=== PATIENT | male | born 1960 | race Two or more races ===

== ENCOUNTER 2024-12-08 02:22 | Emergency (ER) | payer OTHER ==
[~2024-12-08] VITALS: Ht 180.3 cm; Wt 81.6 kg
[2024-12-08] MEDS ORDERED: METFORMIN HCL1000 M2 PO (02:29)
[2024-12-08] MEDS ORDERED: ENALAPRIL M1 MG/1 ML PO (02:30)
[2024-12-08] MEDS ORDERED: ATORVASTATIN CA10 MG PO (02:30)
[2024-12-08 04:16] LABS: BASO % 0.4 % (0.1-1.2); EOS # 0.14 (0.04-0.54); EOS % 1.7 % (0.7-7.0); LYMPH # 1.49 (1.18-3.74); LYMPH % 18.6 % (19.3-53.1); MEAN PLATELET VOLUME 9.50 fl (9.4-12.4); MONO # 0.75 (0.24-0.82); MONO % 9.3 % (4.7-12.5); NEUT # 5.60 (1.56-6.13); NEUT % 69.8 % (34.0-71.1); RED CELL DISTRIBUTION WIDTH 12.4 % (11.6-14.4)
[2024-12-08 04:28] LABS: INR 1.01
[2024-12-08 04:32] LABS: ALT/SGPT 22.0 U/L (12-78); AST/SGOT 19.0 U/L (15-37); BILIRUBIN TOTAL 0.64 mg/dL (0.3-1.2); BUN CREA RATIO 18.0 (7.0-25.0); CREATININE SERUM 0.95 mg/dL (0.70-1.30); GFR 79.56; GLOBULINA 3.6 G/DL (2.4-3.5); GLUCOSE FASTING 136.0 mg/dL (65-100); OSMOLALITY SERUM 289.0 MOSM/KG (275-295)
== END 2024-12-08 06:22 | disposition home or self-care (01) ==
LOC: ER 02:22
PROVIDERS: Physician Assistant Medical
DX: S09.8XXA Other specified injuries of head, initial encounter (principal); W18.39XA Other fall on same level, initial encounter; Y93.89 Activity, other specified; Y92.59 Other trade areas as the place of occurrence of the external cause; S49.81XA Other specified injuries of right shoulder and upper arm, initial encounter; I10 Essential (primary) hypertension; E11.9 Type 2 diabetes mellitus without complications; Z79.84 Long term (current) use of oral hypoglycemic drugs